=== PATIENT | female | born 1985 | race Two or more races ===

== ENCOUNTER 2024-09-11 11:37 | Emergency (ER) | payer OTHER, SELFPAY ==
[2024-09-11] VITALS (15 sets, daily range): BP systolic 115–171; BP diastolic 33–94; PULSE 83–113; RESP 15–21; TEMP 36.4–36.9; O2SAT 95–100; BMI 40.1
--- NOTE | 2024-09-11 12:05 | PD.EDRME ---
Rapid Medical Screening Exam RME Arrival date/time: 09/11/24 11:37 39-year-old female with a history of iron deficiency anemia was sent over by her primary care provider for hemoglobin of 6.6. Patient has a history of blood transfusions. Patient denies any bleeding. I have greeted and performed a focused initial assessment of this patient. A comprehensive ED assessment and evaluation of the patient, analysis of all test results, and completion of the medical decision making process will be conducted by additional ED providers. Chief Complaint: Recheck/Abnormal Lab/Rx Time Seen by Provider: 09/11/24 17:50 Vital signs: Vital Signs Temperature 98.5 F 09/11/24 12:03 Pulse Rate 106 H 09/11/24 12:03 Respiratory Rate 18 09/11/24 12:03 Blood Pressure 132/84 H 09/11/24 12:03 Pulse Oximetry (%) 98 09/11/24 12:03 Oxygen Delivery Method Room Air 09/11/24 12:03 Vital signs reviewed by provider: Yes
[2024-09-11 12:36] LABS: Basophils % (Auto) 1 % (0-2.5); Eosinophils # (Auto) 0.5 Thou/mm3 (0.0-0.5); Eosinophils % (Auto) 7 % (0-10); Hematocrit 21.9 % (36.0-46.0); Immature Granulocytes % (Auto) 0 % (0-0); Immature Granulocytes Auto 0.02 Thou/mm3 (0.00-0.00); Lymphocytes # (Auto) 1.7 Thou/mm3 (1.0-4.8); Lymphocytes % (Auto) 25 % (10-50); Mean Corpuscular HGB Conc 26.5 g/dl (31.0-37.0); Mean Corpuscular Hemoglobin 16.7 pg (25.0-35.0); Mean Corpuscular Volume 63 fL (80-100); Monocytes # (Auto) 0.4 Thou/mm3 (0.0-0.8); Monocytes % (Auto) 5 % (0-12); Neutrophils # (Auto) 4.2 Thou/mm3 (1.8-7.7); Neutrophils % (Auto) 62 % (37-80); Nucleated Red Blood Cell # 0.09 Thou/mm3 (0.00-0.00); Nucleated Red Blood Cell % 1 /100 WBC (0); Platelet Count 462 Thou/mm3 (140-440); RDW Standard Deviation 43.5 fL (36.4-46.3); Red Blood Count 3.47 Miln/mm3 (4.00-5.20); White Blood Count 6.8 Thou/mm3 (3.6-11.0)
[2024-09-11 12:52] LABS: Hemoglobin 5.8 g/dL (12.0-16.0)
[2024-09-11 12:55] LABS: Partial Thromboplastin Time 22.4 Seconds (22.0-36.0)
[2024-09-11 12:59] LABS: Alanine Aminotransferase 49 U/L (10-49); Albumin, Serum 4.4 gm/dL (3.5-5.0); Albumin/Globulin Ratio 1.9 (1.2-2.2); Alkaline Phosphatase 87 U/L (46-116); Anion Gap 9 (7-16); Aspartate Amino Transferase 29 U/L (0-34); BUN/Creatinine Ratio 18 Ratio (12-20); Bilirubin,Total 0.7 mg/dL (0.3-1.2); Blood Urea Nitrogen 14 mg/dL (9-23); Calcium 9.6 mg/dL (8.3-10.6); Calcium (Corrected) 9.6 mg/dL (8.5-10.1); Carbon Dioxide 25.7 mMol/L (20.0-31.0); Chloride 103 mMol/L (98-107); Creatinine (Component) 0.8 mg/dL (0.6-1.3); Estimated Creatinine Clearance 114.4 mL/min (>60); Globulin 2.3 gm/dL (2.3-3.5); Glucose 178 mg/dL (74-106); Osmolality,Calculated 280 (275-295); Potassium 3.6 mMol/L (3.4-5.1); Sodium 138 mMol/L (136-145); Total Protein 6.7 gm/dL (5.7-8.2); eGFR > 60 See Note
--- NOTE | 2024-09-11 17:37 | EKG_ITS ---
[facility] Test Date: 2024-09-11 Pat Name: DELFINA RIDDLE Department: Room: - Gender: Female Director Clinical Operations: : 1985 Requested By: Cindy Pang Order Number: [id number] Reading MD: Cindy Pang Measurements Intervals [place] Rate: 96 P: 6 WA: 155 QRS: 61 QRSD: 92 T: 28 QT: 360 QTc: 455 Interpretive Statements SINUS RHYTHM No previous ECG available for comparison /store/S0/[id number]/ecg/[id number].pdf
--- NOTE | 2024-09-11 18:09 | EDNOTE_ITS ---
ED Recheck Abnl Lab Rx-RME/HPI General Chief Complaint: Recheck/Abnormal Lab/Rx Stated Complaint: LOW HGB (6.6) Time Seen by Provider: 09/11/24 17:50 Arrival date/time: 09/11/24 11:37 Pleasant 39-year-old female presents to the ED with a complaint of feeling weak and fatigued. She was sent by her primary care physician for a transfusion due to a hemoglobin of 6.6. She states she has had 1 previous transfusion before, approximately 1 year ago. She was seen by plush finisher at that time. She denies any hematemesis or melena. Mode of arrival: ambulatory Limitations: no limitations RME / HPI RME / HPI narrative: 09/11/24 11:37 39-year-old female with a history of iron deficiency anemia was sent over by her primary care provider for hemoglobin of 6.6. Patient has a history of blood transfusions. Patient denies any bleeding. I have greeted and performed a focused initial assessment of this patient. A comprehensive ED assessment and evaluation of the patient, analysis of all test results, and completion of the medical decision making process will be conducted by additional ED providers. Related Data Previous Rx's ?Medication ?Instructions ?Recorded triamcinolone acetonide 0.1 % 1 applic topical TID #30 grams 10/23/17 topical cream famotidine 20 mg tablet 20 mg PO BID #20 tabs montelukast 10 mg tablet 10 mg PO QDAY #30 tabs 11/23 prednisone 20 mg tablet See Taper PO QDAY #12 tabs 0 11/23/21 famotidine 20 mg tablet (Pepcid) 20 mg PO BID #10 tabs 05/28/22 ferrous sulfate 325 mg (65 mg 325 mg PO BID #60 tabs 0 05/28/23 iron) tablet (FeroSul) Allergies Allergy/AdvReac Type Severity Reaction Status Date / Time shrimp Allergy Severe Swelling Verified 09/11/24 11:39 of Lip/Tongue/Throat Review of Systems Review of Systems Systems Reviewed: All systems reviewed, normal except as documented Past Medical History Past Medical History CARDIAC: Negative Congestive Heart Failure RESPIRATORY: Negative Chronic Obstructive Pulmonary Disease (COPD) GENITOURINARY: Negative Renal Disease ENDOCRINE: Negative Diabetes Mellitus Type 1 or Diabetes Mellitus Type 2 Social History SMOKING STATUS: Current every day smoker ED Exam Narrative Physical exam: Alert and oriented, patricia 39-year-old female, no acute distress. Lungs are clear, tachycardia noted with regular rhythm and without murmurs. Abdomen is soft and nontender, bowel sounds are present. Moves all extremities well. Pale conjunctiva noted. Tacky mucous membranes. General Limitations: Present no limitations General appearance: Present alert Course Course Course Narrative: Patricia 39-year-old female presents to the ED with a complaint of feeling weak and fatigued. She was sent by her primary care physician for a transfusion due to a hemoglobin of 6.6. She states she has had 1 previous transfusion before, approximately 1 year ago. She was seen by plush finisher at that time. She denies any hematemesis or melena. Alert and oriented, patricia 39-year-old female, no acute distress. Lungs are clear, tachycardia noted with regular rhythm and without murmurs. Abdomen is soft and nontender, bowel sounds are present. Moves all extremities well. Pale conjunctiva noted. Tacky mucous membranes. Vital signs blood pressure 132/84, pulse 106, respirations 18 nonlabored, temp 98.5, O2 sat 98% on room air. Labs reveal a normal white count of 6.8, significantly low H&H of 5.8/21.9, elevated platelets of 462. Coags are normal. Chemistry panel is essentially normal with the exception of a glucose of 178. Blood bank tests reveal O+ blood type with positive antibody screen and anti-K. Patient was transfused with 2 units of PRBCs. Post Transfusion CBC drawn, however patient does not want to wait for results. Patient is stable for discharge. Quality Measures none Orders Category Date Time Status Music Producer STAT Care 09/11/24 17:37 Active EKG (ED ONLY) *Do not use* NOW Care 09/11/24 17:37 Completed Insert IV STAT Care 09/11/24 17:37 Active NPO NOW Care 09/11/24 17:37 Active Transfuse,blood/blood products ONCE Care 09/11/24 17:37 Active EKG (ED Only) Stat Exams 09/11/24 17:37 Draft Antibody Identification Stat Lab 09/11/24 12:09 Results CBC Auto Diff Post-Transfusion Routine Lab 09/11/24 21:00 Completed CBC Stat Lab 09/11/24 12:09 Completed CMP [Comprehensive Metabolic Panel] Stat Lab 09/11/24 12:09 Completed PT [Prothrombin Time with INR] Stat Lab 09/11/24 12:09 Completed PTT [Partial Thromboplastin Time] Stat Lab 09/11/24 12:09 Completed Path Review Blood Smear Stat Lab 09/11/24 12:09 Completed Red Blood Cells Stat Lab 09/11/24 12:09 Results Type and Screen Stat Lab 09/11/24 12:09 Results Acetaminophen Tab [Tylenol Tab] Med 09/11/24 17:37 Discontinued 650 mg PO X1 ONE DiphenhydrAMINE [Benadryl] Med 09/11/24 17:37 Discontinued 25 mg PO X1 ONE Furosemide Inj [Lasix Inj] Med 09/11/24 22:45 Discontinued 40 mg .ROUTE .STK-MED ONE Furosemide [Lasix Inj] Med 09/11/24 17:37 Discontinued 40 mg IVP X1 ONE Vital Signs Vital signs: Vital Signs Temperature 98.5 F 09/11/24 12:03 Pulse Rate 106 H 09/11/24 12:03 Respiratory Rate 18 09/11/24 12:03 Blood Pressure 132/84 H 09/11/24 12:03 Pulse Oximetry (%) 98 09/11/24 12:03 Oxygen Delivery Method Room Air 09/11/24 12:03 Recheck / Abnormal Lab / Rx MDM Narrative MDM Narrative:: Patricia 39-year-old female presents to the ED with a complaint of feeling weak and fatigued. She was sent by her primary care physician for a transfusion due to a hemoglobin of 6.6. She states she has had 1 previous transfusion before, approximately 1 year ago. She was seen by plush finisher at that time. She denies any hematemesis or melena. She denies any heavy menses. Alert and oriented, patricia 39-year-old female, no acute distress. Lungs are clear, tachycardia noted with regular rhythm and without murmurs. Abdomen is soft and nontender, bowel sounds are present. Moves all extremities well. Pale conjunctiva noted. Tacky mucous membranes. Vital signs blood pressure 132/84, pulse 106, respirations 18 nonlabored, temp 98.5, O2 sat 98% on room air. Labs reveal a normal white count of 6.8, significantly low H&H of 5.8/21.9, elevated platelets of 462. Coags are normal. Chemistry panel is essentially normal with the exception of a glucose of 178. Blood bank tests reveal O+ blood type with positive antibody screen and anti-K. Patient was transfused with 2 units of PRBCs. Post Transfusion CBC drawn, however patient does not want to wait for results. Patient is stable for discharge. Patient data External records reviewed:: None Clinical information provided by:: patient Social determinants that could affect healthcare access:: none Patient has the following chronic illnesses:: Anemia, Allergies, GERD How is presenting disease/condition affected by chronic disease/condition?: exacerbated by Evaluation data The following diagnostics were reviewed and interpreted by me:: lab results Lab and/or radiology exams considered but not ordered:: N/A Interpretation Summary: Labs reveal a normal white count of 6.8, significantly low H&H of 5.8/21.9, elevated platelets of 462. Coags are normal. Chemistry panel is essentially normal with the exception of a glucose of 178. Blood bank tests reveal O+ blood type with positive antibody screen and anti-K. Medications / Prescriptions Medications or Prescriptions considered but not ordered:: N/A Medication administrations:: Medication Administration History Discontinued Medications Acetaminophen (Acetaminophen 325 Mg Tablet) 650 mg PO X1 ONE Stop: 09/11/24 17:38 Last Admin: 09/11/24 19:45 Dose: 650 mg Documented By: AM Diphenhydramine HCl (Diphenhydramine 25 Mg Capsule) 25 mg PO X1 ONE Stop: 09/11/24 17:38 Last Admin: 09/11/24 19:45 Dose: 25 mg Documented By: AM Furosemide (Furosemide Inj 10 Mg/Ml Vial 2 Ml) 40 mg IVP X1 ONE Stop: 09/11/24 17:38 Last Admin: 09/11/24 22:53 Dose: 40 mg Documented By: AM Furosemide (Furosemide Inj 10 Mg/Ml 4ml Vial) Confirm Administered Dose 40 mg .ROUTE .STK-MED ONE Stop: 09/11/24 22:46 Last Admin: 09/11/24 22:54 Dose: Not Given Documented By: AM Non-Admin Reason: Duplicate Medication on eMAR Acetaminophen 650 mg p.o., diphenhydramine 25 mg p.o., Lasix 40 mg IVP. Consultations Consultation(s) initiated? (list below): No Diagnosis Recheck Differential Diagnosis: other (Acute blood loss anemia, iron deficiency anemia) Most likely diagnosis given after review of the tests above:: Iron deficiency anemia Admission Indicated Admission indicated?: not indicated Explain why admission is indicated or not indicated:: Patient is stable for discharge Admission Request Was there a request for admission?: No Disposition Plan Disposition Plan: Discharge Discharge Attestation Discharge Attestation: The patient and all family members were given an opportunity to ask questions and understood the discharge instructions. Discharge instructions specifically effects, indications for sooner follow up or return to the emergency department, and the expected course of current diagnosis. Patient condition: Stable Discharge Plan Plan Patient Disposition: HOME (Self Care) Discharge Disposition comment: Stable and improved Prescriptions/Referrals Prescriptions/Med Rec: No Action triamcinolone acetonide 0.1 % cream 1 applic TOP TID Qty: 30 0RF prednisone 20 mg tablet See Taper PO QDAY Qty: 12 0RF Taper: Prednisone Taper 20 mg TWICE A DAY for 3 Days and 0 Hour 20 mg DAILY for 3 Days and 0 Hour 10 mg DAILY for 3 Days and 0 Hour montelukast 10 mg tablet 10 mg PO QDAY Qty: 30 0RF famotidine 20 mg tablet 20 mg PO BID Qty: 20 0RF ferrous sulfate [FeroSul] 325 mg (65 mg iron) tablet 325 mg PO BID Qty: 60 0RF famotidine [Pepcid] 20 mg tablet 20 mg PO BID Qty: 10 0RF Referrals: Fariha Quinones NP [Primary Care Provider] - In 1 week Problem List Clinical Impression: Iron deficiency anemia Patient/Caregiver Discharge Instructions Education Materials: ED Anemia Type Not Specified Additional Instructions: Follow-up with your primary care physician in 24 to 48 hours. Return to the ED for any new or worsening symptoms. Print Language: Georgian Stand Alone Forms: Sallie Award Info., Patient Portal Info Letter PA/INTRANET DEVELOPER Supervising Physician PA/INTRANET DEVELOPER Supervising Physician: Dr. Lofton
[2024-09-11 18:18] LABS: Path Review Blood Smear Sent to Pathologist
[2024-09-11] MEDS: DiphenhydrAMINE 25 MG CAPSULE PO (19:45)
[2024-09-11] MEDS: ACETAMINOPHEN 325 MG TABLET 650 MG PO (19:45)
[2024-09-11] MEDS: FUROSEMIDE INJ 10 MG/ML VIAL 2 ML 40 MG IVP (22:53)
[2024-09-12 01:08] VITALS: BP 134/67; PULSE 80; RESP 17; TEMP 36.5; O2SAT 97
[2024-09-12 01:09] VITALS: BP 134/67; PULSE 80; RESP 17; TEMP 36.5; O2SAT 97
[2024-09-12 01:40] LABS: Basophils # (Auto) 0.1 Thou/mm3 (0.0-0.2); Basophils % (Auto) 1 % (0-2.5); Eosinophils # (Auto) 0.5 Thou/mm3 (0.0-0.5); Eosinophils % (Auto) 6 % (0-10); Hematocrit 27.9 % (36.0-46.0); Immature Granulocytes % (Auto) 0 % (0-0); Immature Granulocytes Auto 0.02 Thou/mm3 (0.00-0.00); Lymphocytes # (Auto) 2.5 Thou/mm3 (1.0-4.8); Lymphocytes % (Auto) 32 % (10-50); Mean Corpuscular HGB Conc 30.8 g/dl (31.0-37.0); Mean Corpuscular Hemoglobin 21.4 pg (25.0-35.0); Mean Corpuscular Volume 70 fL (80-100); Monocytes # (Auto) 0.7 Thou/mm3 (0.0-0.8); Monocytes % (Auto) 8 % (0-12); Neutrophils # (Auto) 4.3 Thou/mm3 (1.8-7.7); Neutrophils % (Auto) 53 % (37-80); Nucleated Red Blood Cell # 0.06 Thou/mm3 (0.00-0.00); Nucleated Red Blood Cell % 1 /100 WBC (0); Platelet Count 363 Thou/mm3 (140-440); Red Blood Count 4.01 Miln/mm3 (4.00-5.20)
[2024-09-12 01:49] LABS: Hemoglobin 8.6 g/dL (12.0-16.0)
== END 2024-09-12 02:38 | disposition home or self-care (01) ==
PROVIDERS: Nurse Practitioner Family; Physician Assistant; Emergency Provider Emergency Medicine; PCP Nurse Practitioner
DX: D50.9 Iron deficiency anemia, unspecified (principal); R00.0 Tachycardia, unspecified
CPT/HCPCS: 36415; 36430; 80053; 85025; 85610; 85730; 86850; 86870; 86900; 86901; 86902; 86921; 86922; 93005; 96374; 99285; J1938; P9016; A9270